=== PATIENT | male | born 1935 | race Caucasian/White ===

== ENCOUNTER 2021-01-14 14:19 | Inpatient (IN) | payer MEDICARE ==
[~2021-01-14] VITALS: Ht 175.3 cm; Wt 70.1 kg
[2021-01-14] MEDS ORDERED: LEVOFLOXACIN 500 MG TAB PO STA (15:45)
[2021-01-14] MEDS ORDERED: LEVOFLOXACIN 500 MG TAB ONE (16:33)
[2021-01-14] MEDS ORDERED: PLAQUENIL200 MG PO (16:36)
[2021-01-14] MEDS ORDERED: TURMERIC1 GM (16:36)
[2021-01-14] MEDS ORDERED: FINASTERIDE5 MG PO (16:36)
[2021-01-14] MEDS ORDERED: vit D (16:36)
[2021-01-14] MEDS ORDERED: CAL (16:36)
[2021-01-14] MEDS ORDERED: ATORVASTATIN CA20 MG PO (16:36)
[2021-01-14] MEDS ORDERED: AMLODIPINE BESYL5 MG PO (16:36)
[2021-01-14] MEDS ORDERED: SULFASALAZINE500 MG PO (16:36)
[2021-01-14] MEDS ORDERED: OSTERA TABLET1 EACH (16:36)
[2021-01-14] MEDS ORDERED: mega red (16:36)
[2021-01-14] MEDS ORDERED: CALCIUM ACETAT667 M1 PO (16:36)
[2021-01-14] MEDS ORDERED: FAMOTIDINE20 MG PO (16:36)
[2021-01-14 18:21] VITALS: BP 160/79
[2021-01-14 18:57] VITALS: BP 160/79
[2021-01-14] MEDS ORDERED: FUROSEMIDE INJ 10 MG/ML 4 ML VIAL IV ONE (19:45)
[2021-01-14 19:54] VITALS: BP 153/75
[2021-01-14 20:25] VITALS: BP 153/75
[2021-01-14 21:50] VITALS: BP 153/75
[2021-01-14] MEDS: ATORVASTATIN 20 MG TAB PO SCH (21:50)
[2021-01-15] VITALS (8 sets, daily range): BP systolic 112–132; BP diastolic 69–85
[2021-01-15] MEDS: ALBUTEROL/IPRATROPIUM 3 ML NEB NEB SCH ×4 (00:10→20:52)
[2021-01-15 02:50] LABS: CREATINE KINASE MB 1.7 ng/mL (0-5.0)
[2021-01-15 08:30] LABS: BASOPHILS % 0.5 % (0.0-1.0); EOSINOPHILS # (AUTO) 0.1 (0.0-0.4); EOSINOPHILS % 1.5 % (0.0-6.0); HEMATOCRIT 43.3 % (38.2-49.6); HEMOGLOBIN 13.1 g/dL (14.0-18.0); LYMPHOCYTES # (AUTO) 1.1 (1.0-3.2); LYMPHOCYTES % 19.1 % (18.0-39.1); MEAN CORPUSCULAR HEMOGLOBIN 24.7 pg (28-32); MEAN CORPUSCULAR HGB CONC 30.3 g/dL (31-35); MEAN CORPUSCULAR VOLUME 81.5 fL (81-99); MONOCYTES # (AUTO) 0.5 (0.2-0.8); MONOCYTES % 9.7 % (4.4-11.3); NEUTROPHILS # (AUTO) 3.8 (2.1-6.9); NEUTROPHILS % 68.8 % (38.7-80.0); PLATELET COUNT 166 x10e3/uL (140-360); RED BLOOD COUNT 5.31 x10e6/uL (4.3-5.7); RED CELL DISTRIBUTION WIDTH 14.2 % (11.7-14.4)
[2021-01-15 08:51] LABS: ALBUMIN 3.7 g/dL (3.5-5.0); ALBUMIN/GLOBULIN RATIO 1.2 (0.8-2.0); ANION GAP 15.3 mmol/L (8-16); CALCIUM 9.3 mg/dL (8.4-10.2); CREATININE, SERUM 1.29 mg/dL (0.72-1.25); POTASSIUM 4.3 mmol/L (3.5-5.1)
[2021-01-15] MEDS ORDERED: AMLODIPINE BESYLATE 5 MG TAB PO SCH (09:00)
[2021-01-15] MEDS ORDERED: CEFTRIAXONE 1 GM in SODIUM CHLORIDE 0.9% 50ML 50 ML IV SCH (09:00)
[2021-01-15 09:13] LABS: CREATINE KINASE MB 1.4 ng/mL (0-5.0)
[2021-01-15] MEDS: FAMOTIDINE 20 MG TAB PO SCH (09:30)
[2021-01-15] MEDS: FINASTERIDE 5 MG TAB PO SCH (09:30)
[2021-01-15] MEDS: HYDROXYCHLOROQUINE SULFATE 200 MG TAB PO SCH (09:30)
[2021-01-15] MEDS: SULFASALAZINE 500 MG TAB PO SCH (09:36)
[2021-01-15] MEDS ORDERED: METOPROLOL SUCCINATE 25 MG TAB XL PO ONE (12:00)
[2021-01-15] MEDS ORDERED: ASPIRIN 81 MG ENTERIC COATED PO ONE (12:00)
[2021-01-15 18:23] LABS: CREATINE KINASE MB 1.5 ng/mL (0-5.0)
[2021-01-15] MEDS: ATORVASTATIN 20 MG TAB PO SCH (20:11)
[2021-01-16] VITALS: BP 135/75
[2021-01-16] MEDS: ALBUTEROL/IPRATROPIUM 3 ML NEB NEB SCH ×2 (03:30→06:30)
[2021-01-16 04:01] VITALS: BP 124/65
[2021-01-16 06:44] LABS: BASOPHILS % 0.4 % (0.0-1.0); EOSINOPHILS # (AUTO) 0.1 (0.0-0.4); EOSINOPHILS % 2.1 % (0.0-6.0); LYMPHOCYTES # (AUTO) 1.1 (1.0-3.2); LYMPHOCYTES % 23.5 % (18.0-39.1); MEAN CORPUSCULAR HEMOGLOBIN 24.5 pg (28-32); MEAN CORPUSCULAR HGB CONC 30.8 g/dL (31-35); MEAN CORPUSCULAR VOLUME 79.8 fL (81-99); MONOCYTES # (AUTO) 0.6 (0.2-0.8); MONOCYTES % 11.8 % (4.4-11.3); NEUTROPHILS # (AUTO) 2.9 (2.1-6.9); PLATELET COUNT 139 x10e3/uL (140-360); RED BLOOD COUNT 4.89 x10e6/uL (4.3-5.7); RED CELL DISTRIBUTION WIDTH 14.2 % (11.7-14.4)
[2021-01-16 07:18] LABS: ANION GAP 13.8 mmol/L (8-16); CALCIUM 8.9 mg/dL (8.4-10.2); CREATININE, SERUM 1.15 mg/dL (0.72-1.25); POTASSIUM 4.8 mmol/L (3.5-5.1)
[2021-01-16 08:26] VITALS: BP 129/71
[2021-01-16] MEDS ORDERED: RAMIPRIL 5 MG CAP PO SCH (09:00)
[2021-01-16] MEDS ORDERED: METOPROLOL SUCCINATE 25 MG TAB XL PO SCH (09:00)
[2021-01-16] MEDS ORDERED: ASPIRIN 81 MG ENTERIC COATED PO SCH (09:00)
[2021-01-16] MEDS: SULFASALAZINE 500 MG TAB PO SCH (09:22)
[2021-01-16] MEDS: FAMOTIDINE 20 MG TAB PO SCH (09:22)
[2021-01-16] MEDS: HYDROXYCHLOROQUINE SULFATE 200 MG TAB PO SCH (09:23)
[2021-01-16] MEDS: FINASTERIDE 5 MG TAB PO SCH (09:23)
[2021-01-16] MEDS ORDERED: FUROSEMIDE 20 MG TAB PO SCH (09:30)
[2021-01-16] MEDS ORDERED: ASPIRIN EC81 MG PO (09:32)
[2021-01-16] MEDS ORDERED: TOPROL XL25 MG PO (09:32)
[2021-01-16] MEDS ORDERED: ALTACE5 MG PO (09:32)
[2021-01-16] MEDS ORDERED: FUROSEMIDE20 MG PO (09:32)
[2021-01-16] MEDS ORDERED: K DUR10 MEQ PO (09:34)
[2021-01-16 09:48] VITALS: BP 129/71
== END 2021-01-16 12:20 | disposition home or self-care (01) | DRG 291 ==
LOC: FSED 14:30 → ERHOLD 16:02 → IMCU 18:18 → MED/SURG3 21:15
PROVIDERS: ADMIT Internal Medicine; ATTEND Internal Medicine
DX: I11.0 Hypertensive heart disease with heart failure (principal); I50.23 Acute on chronic systolic (congestive) heart failure; Z86.16 Personal history of COVID-19; I45.6 Pre-excitation syndrome; E78.5 Hyperlipidemia, unspecified; I35.0 Nonrheumatic aortic (valve) stenosis; Z20.822 Contact with and (suspected) exposure to COVID-19
CPT/HCPCS: 36415; 71046; 71250; 76536; 80048; 80053; 82550; 82553; 83880; 84484; 85025; 85379; 93005; 93306; 94640; 94799; 99284; J0456; J0696; J1940; J7050; U0002

== ENCOUNTER → 2021-03-10 | Day surgery (SDC) | payer MEDICARE ==
[2021-03-07 11:19] LABS: BASOPHILS % 0.6 % (0.0-1.0); HEMATOCRIT 40.6 % (38.2-49.6); HEMOGLOBIN 12.1 g/dL (14.0-18.0); LYMPHOCYTES # (AUTO) 0.6 (1.0-3.2); LYMPHOCYTES % 8.9 % (18.0-39.1); MEAN CORPUSCULAR HGB CONC 29.8 g/dL (31-35); MEAN CORPUSCULAR VOLUME 80.6 fL (81-99); MONOCYTES # (AUTO) 0.5 (0.2-0.8); MONOCYTES % 7.3 % (4.4-11.3); NEUTROPHILS # (AUTO) 5.8 (2.1-6.9); NEUTROPHILS % 82.6 % (38.7-80.0); PLATELET COUNT 263 x10e3/uL (140-360); RED BLOOD COUNT 5.04 x10e6/uL (4.3-5.7); RED CELL DISTRIBUTION WIDTH 15.4 % (11.7-14.4)
[2021-03-07 11:54] LABS: INR 1.26; PROTHROMBIN TIME 16.8 seconds (11.9-14.5)
[2021-03-07 11:55] LABS: ALBUMIN 2.8 g/dL (3.5-5.0); ALBUMIN/GLOBULIN RATIO 0.7 (0.8-2.0); ANION GAP 8.9 mmol/L (8-16); CALCIUM 10.8 mg/dL (8.4-10.2); CHOL/HDL RATIO 2.5 (3.9-4.7); CREATININE, SERUM 1.33 mg/dL (0.72-1.25); PARTIAL THROMBOPLASTIN TIME 46.6 seconds (23.8-35.5); POTASSIUM 4.9 mmol/L (3.5-5.1)
[2021-03-10] VITALS (23 sets, daily range): BP systolic 115–160; BP diastolic 57–85
[~2021-03-10] VITALS: Ht 175.3 cm; Wt 70.3 kg
[~2021-03-10] MED LIST: ALLOPURINOL100 MG PO; ALTACE5 MG PO; AMLODIPINE BESYL5 MG PO; ASPIRIN 325 MG TAB ONE; ASPIRIN EC81 MG PO; ATORVASTATIN CA20 MG PO; CAL; CALCIUM ACETAT667 M1 PO; CLOPIDOGREL BISULFATE 75 MG TAB ONE; ELIQUIS2.5 MG PO; FAMOTIDINE20 MG PO; FENTANYL CITRATE/PF 100MCG/2 ML INJ ONE; FINASTERIDE5 MG PO; FUROSEMIDE20 MG PO; HEPARIN SOD (PORCINE) 1000 UNIT/ML 30ML ONE; HEPARIN SOD/SOD CHLORIDE 1,000 ML ONE; IOPAMIDOL 370 MG/ML 200 ML INFUS..BTL INJ ONE; K DUR10 MEQ PO; LIDOCAINE HCL 2% LOCAL 20 ML VIAL ONE; MIDAZOLAM HCL 2 MG/2 ML VIAL ONE; NITROGLYCERIN/D5W 200 MCG/ML 250 ML ONE; OSTERA TABLET1 EACH; PLAQUENIL200 MG PO; SODIUM CHLORIDE 0.9% 1000ML 0 ML ONE; SODIUM CHLORIDE 0.9% 1000ML 1,000 ML ONE; SULFASALAZINE500 MG PO; TOPROL XL25 MG PO; TURMERIC1 GM; VERAPAMIL HCL 2.5 MG/ML 2 ML VIAL ONE; mega red; vit D
== END | disposition home or self-care (01) ==
LOC: CATH LAB 07:29
PROVIDERS: ATTEND Internal Medicine Cardiovascular Disease
DX: I25.118 Atherosclerotic heart disease of native coronary artery with other forms of angina pectoris (principal); I11.0 Hypertensive heart disease with heart failure; I50.22 Chronic systolic (congestive) heart failure; I35.0 Nonrheumatic aortic (valve) stenosis; I48.91 Unspecified atrial fibrillation; E78.5 Hyperlipidemia, unspecified; Z01.812 Encounter for preprocedural laboratory examination; Z20.822 Contact with and (suspected) exposure to COVID-19; Z79.02 Long term (current) use of antithrombotics/antiplatelets; Z79.82 Long term (current) use of aspirin; Z79.899 Other long term (current) drug therapy; Z82.49 Family history of ischemic heart disease and other diseases of the circulatory system
CPT/HCPCS: 36415; 80053; 80061; 85025; 85610; 85730; 92920; 93458; C1725 ×3; C1769 ×2; C1887 ×2; J1644; J2001; J2250; J3010; J7030; Q9967; U0002; 99152; 99153